=== PATIENT | male | born 1995 | race Two or more races ===

== ENCOUNTER 2019-12-24 05:08 | Emergency (ER) | payer MEDICAID, OTHER ==
[~2019-12-24] VITALS: Ht 182.9 cm; Wt 90.7 kg
--- NOTE | 2019-12-24 05:22 | NUR ---
[facility] AND [employer] FOR L HAND LACERATION AND PSYCH EVAL. PER EMS PT [facility] NOT [facility] CUSTODY.PT WAS ASSISTED TO BED 13 , GOWNED UP AND PLACED ON A MONITOR. REMAINED ON CLOSE SUPERVISION OF A SITTER FOR SAFETY.
--- NOTE | 2019-12-24 05:29 | NUR ---
[employer] [id number]
[2019-12-24 05:35] LABS: BASOPHILS % (AUTO) 0.3 % (0.0-2.0); EOSINOPHILS % (AUTO) 0.9 % (0.0-6.0); HEMATOCRIT 48 % (39-51); HEMOGLOBIN 16.5 g/dL (13.5-17.5); LYMPHOCYTES # (AUTO) 1.8 /CMM (0.8-4.8); LYMPHOCYTES % (AUTO) 15.1 % (20.0-44.0); MEAN CORPUSCULAR HGB CONC 34 g/dl (31.0-36.0); MEAN CORPUSCULAR VOLUME 89 fL (80-96); MONOCYTES # (AUTO) 0.8 /CMM (0.1-1.30); MONOCYTES % (AUTO) 6.7 % (2.0-12.0); NEUTROPHILS # (AUTO) 9.4 /CMM (1.8-8.9); PLATELET COUNT (AUTO) 196 /CMM (150-450); WHITE BLOOD COUNT (AUTO) 12.1 K/uL (4.3-11.0)
[2019-12-24 05:41] LABS: CALCIUM, SERUM 9.3 mg/dL (8.5-10.1); CARBON DIOXIDE 28 mmol/L (21-32); CHLORIDE 102 mmol/L (98-107); CREATININE 0.9 mg/dL (0.6-1.3); GLUCOSE 162 mg/dL (74-106); POTASSIUM 3.5 mmol/L (3.5-5.1); SODIUM SERUM 140 mmol/L (136-145); UREA NITROGEN, BLOOD 11 mg/dL (7-18)
[2019-12-24 05:54] LABS: ALANINE AMINOTRANSFERASE 83 U/L (12-78); ALBUMIN 4.3 g/dL (3.4-5.0); ALKALINE PHOSPHATASE 79 U/L (46-116); ASPARTATE AMINOTRANSFERASE 34 U/L (15-37); BILIRUBIN,DIRECT 0.2 mg/dL (0.0-0.2); BILIRUBIN,TOTAL 0.8 mg/dL (0.2-1.0)
[2019-12-24 05:58] LABS: SALICYLATE 1.6 mg/dL (2.8-20.0)
[2019-12-24 05:59] LABS: ACETAMINOPHEN 0 ug/ml (10-30); ALCOHOL, BLOOD < 3 mg/dL (0-0)
--- NOTE | 2019-12-24 10:14 | NUR ---
URINE SAMPLE COLLECTED AND SENT TO LAB.
[2019-12-24 10:19] LABS: APPEARANCE,URINE Clear (CLEAR); BILIRUBIN,URINE SMALL (NEGATIVE); BLOOD, URINE Negative Ery/uL (NEGATIVE); COLOR,URINE Yellow (YELLOW); KETONES,URINE Negative (NEGATIVE); LEUKOCYTE ESTERASE ,URINE Negative (NEGATIVE); NITRITE, URINE Negative (NEGATIVE); PH,URINE 5.5 (5.0-8.0); PROTEIN,URINE >=300 mg/dl (NEGATIVE); UGLUCOSE Negative (NEGATIVE); UROBILINOGEN,URINE 0.2 EU/dL (0.2)
--- NOTE | 2019-12-24 14:50 | NUR ---
[facility] REPRESENTATIVE AT BEDSIDE FOR EVAL.
[2019-12-24] MEDS ORDERED: risperiDONE 1 MG TABLET PO ONE (16:00)
[2019-12-24] MEDS ORDERED: risperiDONE 1 MG TABLET ONE (16:18)
[2019-12-24] MEDS ORDERED: OLANZAPINE 10 MG VIAL IM ONE ×2 (16:32→17:00)
--- NOTE | 2019-12-24 16:43 | NUR ---
Patient discharged to home in stable condition. Written and verbal after care instructions given. Patient verbalizes understanding of instruction.
[2019-12-24 16:44] VITALS: BP 137/87
== END 2019-12-24 16:44 | disposition home or self-care (01) ==
LOC: ER 05:10
DX: S61.412A Laceration without foreign body of left hand, initial encounter (principal); R45.851 Suicidal ideations; X58.XXXA Exposure to other specified factors, initial encounter; Y93.89 Activity, other specified; Y92.89 Other specified places as the place of occurrence of the external cause; Y99.8 Other external cause status
CPT/HCPCS: 12001; 36415; 80048; 80076; 80305; 80307; 80329; 81001; 85025; 96372; 99283; A6403; G0480; J3490; 81000-TC

== ENCOUNTER 2023-03-30 15:30 | Inpatient (IN) | payer OTHER ==
[~2023-03-30] VITALS: Ht 185.4 cm; Wt 108.9 kg
[2023-03-30 17:43] LABS: BASOPHILS # (AUTO) 0.1 K/uL (0.0-0.2); BASOPHILS % (AUTO) 0.7 % (0.0-2.0); EOSINOPHILS # (AUTO) 0.1 K/uL (0.0-0.7); EOSINOPHILS % (AUTO) 0.9 % (0.0-6.0); HEMATOCRIT 46 % (39-51); HEMOGLOBIN 15.5 g/dL (13.5-17.5); LYMPHOCYTES # (AUTO) 2.9 K/uL (0.8-4.8); LYMPHOCYTES % (AUTO) 19.2 % (20.0-44.0); MEAN CORPUSCULAR HEMOGLOBIN 27 PG (26.0-33.0); MEAN CORPUSCULAR HGB CONC 34 g/dl (31.0-36.0); MEAN CORPUSCULAR VOLUME 80 fL (80-96); MONOCYTES % (AUTO) 6.6 % (2.0-12.0); NEUTROPHILS # (AUTO) 11.1 K/uL (1.8-8.9); NEUTROPHILS % (AUTO) 72.6 % (43.0-81.0); PLATELET COUNT (AUTO) 338 K/uL (150-450); RED BLOOD CELL COUNT(AUTO) 5.72 MIL/uL (4.5-6.0); WHITE BLOOD COUNT (AUTO) 15.3 K/uL (4.3-11.0)
[2023-03-30] MEDS ORDERED: ARIP30TA3 PO (17:44)
[2023-03-30] MEDS ORDERED: METF-440 PO (17:44)
[2023-03-30 17:54] LABS: APPEARANCE,URINE CLEAR (CLEAR); BILIRUBIN,URINE NEGATIVE (NEGATIVE); BLOOD, URINE NEGATIVE Ery/uL (NEGATIVE); COLOR,URINE YELLOW (YELLOW); KETONES,URINE NEGATIVE (NEGATIVE); LEUKOCYTE ESTERASE ,URINE NEGATIVE (NEGATIVE); NITRITE, URINE NEGATIVE (NEGATIVE); PH,URINE 7.5 (5.0-8.0); PROTEIN,URINE TRACE mg/dl (NEGATIVE); UGLUCOSE 3+ mg/dL (NEGATIVE); UROBILINOGEN,URINE 0.2 EU/dL (0.2)
[2023-03-30 18:06] LABS: ADD URINE CULTURE NO; BACTERIA,URINE None seen /HPF (None Seen); RBC,URINE 0-2 /HPF (0-2); SQUAMOUS EPITHELIAL CELL,UR 0-2 /HPF (None Seen); WBC,URINE 0-2 /HPF (0-3)
[2023-03-30 18:12] LABS: POTASSIUM 4.4 mmol/L (3.5-5.1)
[2023-03-30 18:37] LABS: BILIRUBIN,DIRECT 0.1 mg/dL (0.0-0.2); BILIRUBIN,TOTAL 0.3 mg/dL (0.2-1.0); CALCIUM, SERUM 10.1 mg/dL (8.5-10.1); CREATININE 0.8 mg/dL (0.6-1.3); TOTAL PROTEIN, SERUM 9.2 g/dL (6.4-8.2)
[2023-03-30] MEDS ORDERED: INSULIN REGULAR, HUMAN 100 UNIT/ML 10 ML VIAL SQ ONE (20:00)
[2023-03-30] MEDS ORDERED: INSULIN REGULAR, HUMAN 100 UNIT/ML 10 ML VIAL ONE (20:01)
[2023-03-30] MEDS ORDERED: IV NS 0.9% 1,000 ML BAG IV ONE (22:00)
[2023-03-31] MEDS ORDERED: ONDANSETRON HCL/PF 4 MG/2 ML VIAL IVP PRN
[2023-03-31] MEDS ORDERED: DEXTROSE 50%-WATER 50 ML DISP.SYRIN IV PRN
[2023-03-31] MEDS ORDERED: LORAZEPAM INJ 2 MG/ML VIAL IV PRN
[2023-03-31] MEDS ORDERED: ACETAMINOPHEN 325 MG TABLET PO PRN
[2023-03-31] MEDS: IV 1/2NS 1000 ML 1,000 ML IV PRN ×3 (03:25→23:05)
[2023-03-31] MEDS ORDERED: IV NS 0.9% 1,000 ML IV SCH (03:30)
[2023-03-31] MEDS ORDERED: ARIPIPRAZOLE 5 MG TABLET PO ONE (03:32)
[2023-03-31] MEDS ORDERED: ARIPIPRAZOLE 2 MG TABLET ONE (03:39)
[2023-03-31 05:38] LABS: BASOPHILS # (AUTO) 0.1 K/uL (0.0-0.2); BASOPHILS % (AUTO) 0.5 % (0.0-2.0); EOSINOPHILS # (AUTO) 0.3 K/uL (0.0-0.7); EOSINOPHILS % (AUTO) 2.8 % (0.0-6.0); HEMATOCRIT 40 % (39-51); HEMOGLOBIN 13.5 g/dL (13.5-17.5); MEAN CORPUSCULAR HEMOGLOBIN 27 PG (26.0-33.0); MEAN CORPUSCULAR HGB CONC 33 g/dl (31.0-36.0); MEAN CORPUSCULAR VOLUME 80 fL (80-96); MONOCYTES # (AUTO) 0.8 K/uL (0.1-1.30); MONOCYTES % (AUTO) 6.7 % (2.0-12.0); NEUTROPHILS # (AUTO) 7.8 K/uL (1.8-8.9); PLATELET COUNT (AUTO) 284 K/uL (150-450); RED BLOOD CELL COUNT(AUTO) 5.06 MIL/uL (4.5-6.0); RED CELL DISTRIBUTION WIDTH 14.2 % (11.5-15.0)
[2023-03-31 06:01] LABS: ALBUMIN 2.4 g/dL (3.4-5.0); BILIRUBIN,TOTAL 0.4 mg/dL (0.2-1.0); CALCIUM, SERUM 9.2 mg/dL (8.5-10.1); CREATININE 0.6 mg/dL (0.6-1.3); MAGNESIUM 1.4 mg/dL (1.8-2.4); PHOSPHORUS 4.6 mg/dL (2.5-4.9); POTASSIUM 4.3 mmol/L (3.5-5.1); TOTAL PROTEIN, SERUM 7.7 g/dL (6.4-8.2)
[2023-03-31 06:10] LABS: THYROID STIMULATING HORMONE 5.298 uIU/mL (0.358-3.74)
[2023-03-31] MEDS: BLOOD SUGAR DIAGNOSTIC 1 EACH STRIP IN SCH ×4 (08:30→21:40)
[2023-03-31] MEDS ORDERED: MAGNESIUM OXIDE 400 MG TABLET PO ONE (10:00)
[2023-03-31] MEDS: PANTOPRAZOLE 40 MG TABLET.DR PO SCH (10:20)
[2023-03-31] MEDS: METFORMIN 500 MG TABLET PO SCH ×2 (10:21→17:25)
[2023-03-31] MEDS: glipiZIDE 10 MG TABLET PO SCH ×2 (10:21→17:27)
[2023-03-31 12:00] VITALS: BP 126/82; TEMP 97.5; O2SAT 95
[2023-03-31] MEDS: INSULIN REGULAR, HUMAN 100 UNIT/ML 3 ML VIAL SQ PRN ×2 (12:34→21:43)
[2023-03-31 16:00] VITALS: BP 138/80; TEMP 98.8; O2SAT 97
[2023-03-31 19:00] VITALS: BP 124/85; TEMP 98; O2SAT 99
[2023-04-01] MEDS: BLOOD SUGAR DIAGNOSTIC 1 EACH STRIP IN SCH ×4 (06:33→22:18)
[2023-04-01] MEDS: INSULIN REGULAR, HUMAN 100 UNIT/ML 3 ML VIAL SQ PRN ×4 (06:42→22:19)
[2023-04-01] MEDS: PANTOPRAZOLE 40 MG TABLET.DR PO SCH (07:18)
[2023-04-01 08:00] VITALS: BP 144/89; TEMP 98.2; O2SAT 96
[2023-04-01] MEDS: glipiZIDE 10 MG TABLET PO SCH ×2 (08:46→16:39)
[2023-04-01] MEDS: METFORMIN 500 MG TABLET PO SCH ×2 (08:46→16:39)
[2023-04-01] MEDS ORDERED: IBUP-1955 PO (11:21)
[2023-04-01 16:05] VITALS: BP 132/72; TEMP 98.9; O2SAT 95
[2023-04-01] MEDS: LINAGLIPTIN 5 MG TABLET PO SCH (16:39)
[2023-04-01] MEDS: IV 1/2NS 1000 ML 1,000 ML IV PRN (17:54)
[2023-04-01 20:00] VITALS: BP 106/83; TEMP 97.7; O2SAT 98
[2023-04-02] MEDS: BLOOD SUGAR DIAGNOSTIC 1 EACH STRIP IN SCH ×4 (07:30→22:20)
[2023-04-02 08:00] VITALS: BP 124/66; TEMP 97.3; O2SAT 96
[2023-04-02] MEDS: PANTOPRAZOLE 40 MG TABLET.DR PO SCH (08:41)
[2023-04-02] MEDS: glipiZIDE 10 MG TABLET PO SCH ×2 (08:42→16:13)
[2023-04-02] MEDS: METFORMIN 500 MG TABLET PO SCH ×2 (08:42→16:13)
[2023-04-02] MEDS: LINAGLIPTIN 5 MG TABLET PO SCH (08:42)
[2023-04-02] MEDS ORDERED: LINA5TAB PO (09:04)
[2023-04-02] MEDS ORDERED: GLIP10TA11 PO (09:04)
[2023-04-02 16:00] VITALS: BP 130/77; TEMP 97.9; O2SAT 99
[2023-04-02 20:00] VITALS: BP 135/88; TEMP 98.3; O2SAT 97
[2023-04-02] MEDS: INSULIN REGULAR, HUMAN 100 UNIT/ML 3 ML VIAL SQ PRN (22:19)
[2023-04-03] MEDS: BLOOD SUGAR DIAGNOSTIC 1 EACH STRIP IN SCH ×4 (07:26→23:44)
[2023-04-03] MEDS: PANTOPRAZOLE 40 MG TABLET.DR PO SCH (07:56)
[2023-04-03 08:00] VITALS: BP 134/87; TEMP 97.2; O2SAT 97
[2023-04-03] MEDS: METFORMIN 500 MG TABLET PO SCH ×2 (08:00→17:02)
[2023-04-03] MEDS: LINAGLIPTIN 5 MG TABLET PO SCH (08:00)
[2023-04-03] MEDS: glipiZIDE 10 MG TABLET PO SCH ×2 (08:00→17:02)
[2023-04-03 16:00] VITALS: BP 136/90; TEMP 98.2; O2SAT 97
[2023-04-03 20:00] VITALS: BP 129/94; TEMP 98.4; O2SAT 98
[2023-04-03] MEDS: INSULIN REGULAR, HUMAN 100 UNIT/ML 3 ML VIAL SQ PRN (23:45)
[2023-04-04] MEDS: BLOOD SUGAR DIAGNOSTIC 1 EACH STRIP IN SCH ×4 (06:40→21:04)
[2023-04-04] MEDS: INSULIN REGULAR, HUMAN 100 UNIT/ML 3 ML VIAL SQ PRN ×2 (06:41→11:48)
[2023-04-04 07:00] VITALS: BP 116/73; TEMP 98.2; O2SAT 97
[2023-04-04] MEDS: METFORMIN 500 MG TABLET PO SCH ×2 (08:10→17:19)
[2023-04-04] MEDS: PANTOPRAZOLE 40 MG TABLET.DR PO SCH (08:10)
[2023-04-04] MEDS: glipiZIDE 10 MG TABLET PO SCH ×2 (08:10→17:19)
[2023-04-04] MEDS: LINAGLIPTIN 5 MG TABLET PO SCH (08:11)
[2023-04-04 16:00] VITALS: BP 137/89; TEMP 98.1; O2SAT 96
[2023-04-04 20:00] VITALS: BP_SYST 130; BP_DIAS 85; BP_DIAS 86; TEMP 97.5; TEMP 97.7; O2SAT 97; O2SAT 99
[2023-04-04] MEDS: IV 1/2NS 1000 ML 1,000 ML IV PRN (21:05)
[2023-04-05] MEDS: BLOOD SUGAR DIAGNOSTIC 1 EACH STRIP IN SCH ×4 (06:06→21:38)
[2023-04-05 07:00] VITALS: BP 122/81; TEMP 98; O2SAT 98
[2023-04-05] MEDS: PANTOPRAZOLE 40 MG TABLET.DR PO SCH (07:48)
[2023-04-05] MEDS: glipiZIDE 10 MG TABLET PO SCH ×2 (08:20→16:19)
[2023-04-05] MEDS: METFORMIN 500 MG TABLET PO SCH ×2 (08:20→16:19)
[2023-04-05] MEDS: LINAGLIPTIN 5 MG TABLET PO SCH (08:20)
[2023-04-05] MEDS: INSULIN REGULAR, HUMAN 100 UNIT/ML 3 ML VIAL SQ PRN (11:38)
[2023-04-05 16:00] VITALS: BP 128/78; TEMP 98.1; O2SAT 99
[2023-04-05 20:00] VITALS: BP 137/84; TEMP 97.3; O2SAT 95
[2023-04-06] MEDS: BLOOD SUGAR DIAGNOSTIC 1 EACH STRIP IN SCH ×4 (06:34→22:07)
[2023-04-06 07:00] VITALS: BP 125/93; TEMP 97.9; O2SAT 96
[2023-04-06] MEDS: PANTOPRAZOLE 40 MG TABLET.DR PO SCH (08:04)
[2023-04-06] MEDS: LINAGLIPTIN 5 MG TABLET PO SCH (08:05)
[2023-04-06] MEDS: glipiZIDE 10 MG TABLET PO SCH ×2 (08:05→16:23)
[2023-04-06] MEDS: METFORMIN 500 MG TABLET PO SCH ×2 (08:05→16:23)
[2023-04-06 16:00] VITALS: BP 140/88; TEMP 98.6; O2SAT 100
[2023-04-06 20:00] VITALS: BP 117/78; TEMP 98.1; O2SAT 98
[2023-04-07] MEDS: BLOOD SUGAR DIAGNOSTIC 1 EACH STRIP IN SCH ×4 (06:51→21:43)
[2023-04-07 08:00] VITALS: BP 128/75; TEMP 98.2; O2SAT 97
[2023-04-07] MEDS: LINAGLIPTIN 5 MG TABLET PO SCH (09:40)
[2023-04-07] MEDS: PANTOPRAZOLE 40 MG TABLET.DR PO SCH (09:40)
[2023-04-07] MEDS: glipiZIDE 10 MG TABLET PO SCH ×2 (09:40→17:22)
[2023-04-07] MEDS: METFORMIN 500 MG TABLET PO SCH ×2 (09:40→17:22)
[2023-04-07 16:00] VITALS: BP 122/88; TEMP 98.4; O2SAT 100
[2023-04-07] MEDS: INSULIN REGULAR, HUMAN 100 UNIT/ML 3 ML VIAL SQ PRN (21:43)
[2023-04-08] MEDS: INSULIN REGULAR, HUMAN 100 UNIT/ML 3 ML VIAL SQ PRN ×2 (06:31→21:40)
[2023-04-08] MEDS: BLOOD SUGAR DIAGNOSTIC 1 EACH STRIP IN SCH ×4 (06:31→21:40)
[2023-04-08] MEDS: PANTOPRAZOLE 40 MG TABLET.DR PO SCH (07:56)
[2023-04-08] MEDS: glipiZIDE 10 MG TABLET PO SCH ×2 (07:56→16:55)
[2023-04-08] MEDS: LINAGLIPTIN 5 MG TABLET PO SCH (07:56)
[2023-04-08] MEDS: METFORMIN 500 MG TABLET PO SCH ×2 (07:58→16:55)
[2023-04-08 08:00] VITALS: BP 139/94; TEMP 97.3; O2SAT 97
[2023-04-08 16:00] VITALS: BP 135/95; TEMP 98.8; O2SAT 96
[2023-04-08 19:30] VITALS: BP 133/81; TEMP 98.9; O2SAT 96
[2023-04-09] MEDS: BLOOD SUGAR DIAGNOSTIC 1 EACH STRIP IN SCH ×3 (06:47→17:05)
[2023-04-09] MEDS: INSULIN REGULAR, HUMAN 100 UNIT/ML 3 ML VIAL SQ PRN (06:47)
[2023-04-09] MEDS: LINAGLIPTIN 5 MG TABLET PO SCH (08:14)
[2023-04-09] MEDS: glipiZIDE 10 MG TABLET PO SCH ×2 (08:14→16:46)
[2023-04-09] MEDS: METFORMIN 500 MG TABLET PO SCH ×2 (08:15→16:46)
[2023-04-09] MEDS: PANTOPRAZOLE 40 MG TABLET.DR PO SCH (08:15)
[2023-04-09 13:20] VITALS: BP 133/80; TEMP 98; O2SAT 96
[2023-04-09 16:11] VITALS: BP 146/90; TEMP 97.7; O2SAT 98
[2023-04-09 21:24] VITALS: BP 128/86; TEMP 98.1; O2SAT 99
[2023-04-10] MEDS: BLOOD SUGAR DIAGNOSTIC 1 EACH STRIP IN SCH ×5 (00:23→22:06)
[2023-04-10] MEDS: INSULIN REGULAR, HUMAN 100 UNIT/ML 3 ML VIAL SQ PRN ×3 (00:24→22:06)
[2023-04-10] MEDS: PANTOPRAZOLE 40 MG TABLET.DR PO SCH (07:30)
[2023-04-10] MEDS: LINAGLIPTIN 5 MG TABLET PO SCH (09:00)
[2023-04-10] MEDS: glipiZIDE 10 MG TABLET PO SCH ×2 (09:00→16:47)
[2023-04-10] MEDS: METFORMIN 500 MG TABLET PO SCH ×2 (09:00→16:47)
[2023-04-10 16:00] VITALS: BP 125/79; TEMP 97.9; O2SAT 97
[2023-04-10 20:00] VITALS: BP 140/88; TEMP 97.9; O2SAT 97
[2023-04-11] MEDS: BLOOD SUGAR DIAGNOSTIC 1 EACH STRIP IN SCH ×4 (07:20→21:58)
[2023-04-11] MEDS: INSULIN REGULAR, HUMAN 100 UNIT/ML 3 ML VIAL SQ PRN ×3 (07:22→16:42)
[2023-04-11 07:30] VITALS: BP 129/85; TEMP 97.7; O2SAT 100; O2SAT 97
[2023-04-11] MEDS: PANTOPRAZOLE 40 MG TABLET.DR PO SCH (07:49)
[2023-04-11] MEDS: glipiZIDE 10 MG TABLET PO SCH ×2 (08:47→16:22)
[2023-04-11] MEDS: METFORMIN 500 MG TABLET PO SCH ×2 (08:47→16:22)
[2023-04-11] MEDS: LINAGLIPTIN 5 MG TABLET PO SCH (08:48)
[2023-04-11 16:00] VITALS: BP 132/95; TEMP 98.1; O2SAT 96
[2023-04-11 20:00] VITALS: BP 110/67; TEMP 97.3; O2SAT 98
[2023-04-12] MEDS: BLOOD SUGAR DIAGNOSTIC 1 EACH STRIP IN SCH ×4 (06:37→22:00)
[2023-04-12 07:30] VITALS: BP 130/82; TEMP 97.7; O2SAT 98
[2023-04-12] MEDS: METFORMIN 500 MG TABLET PO SCH ×2 (08:29→18:16)
[2023-04-12] MEDS: PANTOPRAZOLE 40 MG TABLET.DR PO SCH (08:30)
[2023-04-12] MEDS: glipiZIDE 10 MG TABLET PO SCH ×2 (08:30→18:16)
[2023-04-12] MEDS: LINAGLIPTIN 5 MG TABLET PO SCH (08:30)
[2023-04-12 20:00] VITALS: BP 131/87; TEMP 98.2; O2SAT 97
[2023-04-13] MEDS: BLOOD SUGAR DIAGNOSTIC 1 EACH STRIP IN SCH ×4 (07:09→22:00)
[2023-04-13] MEDS: PANTOPRAZOLE 40 MG TABLET.DR PO SCH (07:18)
[2023-04-13 07:30] VITALS: BP 119/81; TEMP 97.5; O2SAT 96
[2023-04-13] MEDS: glipiZIDE 10 MG TABLET PO SCH ×2 (08:27→17:41)
[2023-04-13] MEDS: LINAGLIPTIN 5 MG TABLET PO SCH (08:27)
[2023-04-13] MEDS: METFORMIN 500 MG TABLET PO SCH ×2 (08:27→17:40)
[2023-04-13 16:00] VITALS: BP 129/82; TEMP 98.1; O2SAT 100
[2023-04-13 20:00] VITALS: BP 120/70; TEMP 97.5; O2SAT 100
[2023-04-14] MEDS: BLOOD SUGAR DIAGNOSTIC 1 EACH STRIP IN SCH ×3 (06:47→17:20)
[2023-04-14] MEDS: PANTOPRAZOLE 40 MG TABLET.DR PO SCH (07:39)
[2023-04-14 08:00] VITALS: BP 94/41; TEMP 98.6; O2SAT 99
[2023-04-14] MEDS: LINAGLIPTIN 5 MG TABLET PO SCH (08:17)
[2023-04-14] MEDS: glipiZIDE 10 MG TABLET PO SCH ×2 (08:18→17:19)
[2023-04-14] MEDS: METFORMIN 500 MG TABLET PO SCH ×2 (08:18→17:19)
== END 2023-04-14 20:38 | DRG 420 ==
LOC: ER 15:46 → MED 03-31 07:58
PROVIDERS: ADMIT Internal Medicine; ATTEND Nurse Practitioner Acute Care
DX: E11.65 Type 2 diabetes mellitus with hyperglycemia (principal); E43 Unspecified severe protein-calorie malnutrition; E11.40 Type 2 diabetes mellitus with diabetic neuropathy, unspecified; E88.09 Other disorders of plasma-protein metabolism, not elsewhere classified; F79 Unspecified intellectual disabilities; R26.9 Unspecified abnormalities of gait and mobility; Z91.148 Patient's other noncompliance with medication regimen for other reason; F31.9 Bipolar disorder, unspecified; Z79.4 Long term (current) use of insulin; Z79.84 Long term (current) use of oral hypoglycemic drugs; Z79.899 Other long term (current) drug therapy; M94.29 Chondromalacia, multiple sites; R26.2 Difficulty in walking, not elsewhere classified
CPT/HCPCS: 36415; 71045-TC; 73560-TC; 80048-TC; 80053-TC; 80061-TC; 80076-TC; 81001; 82607-TC; 82962-TC; 83735-TC; 84100-TC; 84443-TC; 85025-TC; 87081-TC; 97110-TC; 97112-TC; 97116-TC; 97530-TC; A4223; G0378; J1815; J3490; J7030